=== PATIENT | male | born 1940 | race Caucasian/White ===

== ENCOUNTER → 2020-08-20 15:47 | Outpatient (BNVA) | payer MEDICARE, OTHER, SELFPAY | PROVIDERS: Family Provider Family Medicine; PCP Family Medicine; Visit Provider Internal Medicine | DX: R53.83 Other fatigue (principal); E53.8 Deficiency of other specified B group vitamins; E78.5 Hyperlipidemia, unspecified; Z86.711 Personal history of pulmonary embolism; J44.9 Chronic obstructive pulmonary disease, unspecified | CPT/HCPCS: 80053; 80061; 82550; 82607; 82746; 83036; 83550; 84443; 85025; 85049; 85384; 85610; 85651; 85730; 86140 ==

== ENCOUNTER → 2022-08-02 17:19 | Outpatient (BNVA) | payer MEDICARE, OTHER, SELFPAY | PROVIDERS: Family Provider Family Medicine; PCP Family Medicine; Visit Provider Nurse Practitioner | DX: M35.3 Polymyalgia rheumatica (principal); R53.83 Other fatigue; Z86.711 Personal history of pulmonary embolism | CPT/HCPCS: 80053; 85025; 85651; 86140 ==

== ENCOUNTER → 2022-08-05 10:33 | Outpatient (BNVA) | payer MEDICARE, OTHER, SELFPAY | PROVIDERS: Family Provider Family Medicine; PCP Family Medicine; Visit Provider Nurse Practitioner | DX: Z86.711 Personal history of pulmonary embolism (principal); M35.3 Polymyalgia rheumatica; R53.83 Other fatigue; R73.9 Hyperglycemia, unspecified; I10 Essential (primary) hypertension | CPT/HCPCS: 83036 ==

== ENCOUNTER 2022-10-19 12:39 | Emergency (ER) | payer MEDICARE, OTHER, SELFPAY ==
[2022-10-19] VITALS (63 sets, daily range): BP systolic 102–146; BP diastolic 74–89; PULSE 78–93; RESP 12–29; TEMP 36.4; O2SAT 91–98; BMI 28.2
--- NOTE | 2022-10-19 12:42 | XR_ITS ---
WS: [id number] Exam: XR chest 1V portable [id number] Date/Time of Exam: 10/19/2022 12:53 PM Reason For Exam: dyspnea/cough Comparison 03/12/2013. There are mild groundglass infiltrates in both upper lobes. Mild cardiac enlargement. The lungs are f ully inflated. No obvious pleural effusion. The mediastinum is unremarkable in appearance. Regional b mesfin elements are intact. XR/XR chest 1V portable [id number] IMPRESSION: 1. Mild groundglass infiltrates in both upper lobes. These changes might be chr onic however interstitial pneumonia is not excluded. Covid pneumonia might have this appearance. 2. Probable mild cardiac enlargement.
--- NOTE | 2022-10-19 12:54 | ECG_ITS ---
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 Measurements Intervals [place] Rate: 80 P: 48 OK: 180 QRS: 33 QRSD: 101 T: 30 QT: 373 QTc: 432 Interpretive Statements SINUS RHYTHM No previous ECG available for comparison Electronically Signed On 10-19-2022 20:40:53 CDT by Aramis Rose M.D. [id number]
--- NOTE | 2022-10-19 13:50 | W.ED.SOB ---
Documented by User: Lazaro Haskins DO 10/20/22 07:31 HPI - SOB/Dyspnea General: Chief Complaint: Shortness of Breath/Dyspnea Stated Complaint: SOB Time Seen by Provider: 10/19/22 12:41 Source: patient Mode of arrival: EMS History of Present Illness: HPI Narrative: 81-year-old male presents emergency room complaining of shortness of breath. Patient was seated the all the clinic to be evaluated and was found to be at 84% on 3 L bumped him up to 94% back to him back down to 3 L when he arrived here because his sats were approaching 100% maintaining mid to low 90s on 3 L he is chronically on oxygen due to COPD.. He also has a history of congestive heart failure has noticeable increased swelling in his legs recently. He denies any productive cough fever sweats or chills no chest pain. MD elicited complaint: shortness of breath and cough Pertinent past history: COPD Exacerbating factors: nothing Relieving factors: nothing Known history of: COPD Associated symptoms: Deny abdominal pain, chest congestion, chest pain, cough, diaphoresis, dizziness, extremity pain, fever(s), hemoptysis, lightheadedness, myalgias, nausea, orthopnea, palpitations, paresthesias, polydipsia, polyuria, rash, sense of impending doom, syncope or vomiting Treatment prior to arrival: oxygen Review of Systems Const: Denies: fever(s) or diaphoresis Card: Denies: chest pain, palpitations, lightheadedness, syncope or orthopnea Resp: Denies: hemoptysis or chest congestion GI: Denies: abdominal pain, nausea or vomiting Musc: Denies: extremity pain Neuro: Denies: dizziness Endo: Denies: polyuria or polydipsia ON LICENSE OF [facility] ED PFSH: Medical History Anxiety with depression COPD (chronic obstructive pulmonary disease) DVT (deep venous thrombosis) Essential (primary) hypertension History of migraine History of pulmonary embolism 1999 [facility] Surgical History History of nasal surgery Family History Father Cancer Mother Cancer Social History (Reviewed 10/20/22 @ 07:30 by SHO Ryder Smoking and tobacco status: former smoker Second hand smoke exposure: No Smoking risk assessment/counseling performed?: No Alcohol intake: former Desire information about alcohol rehabilitation?: No Counseling given: No Substance/Drug Use: unknown Desire information about substance/drug rehabilitation?: No Counseling given: No Adopted: No Caregiver/support person: No Lives independently: Yes Household members: spouse Housing: House Marital status: Number of children: 2 service: Yes Current occupational status: retired Current occupational exposures/hazards: No Do you think of yourself as: Straight/Heterosexual Current gender identity: Male Physical Exam Const: COMMON NORMALS: no acute distress GENERAL APPEARANCE: cooperative and comfortable ORIENTATION/CONSCIOUSNESS: Yes awake, Yes oriented to person, Yes oriented to place and Yes oriented to time HENMT: COMMON NORMALS: normocephalic, atraumatic and hearing grossly normal bilaterally HEAD & SCALP: normocephalic and atraumatic Resp: COMMON NORMALS: normal respiratory effort, No retractions and No use of accessory muscles AUSCULTATION: crackles Cardio: COMMON NORMALS: regular rate, regular rhythm and No murmurs present (Cardio) RATE: regular rate RHYTHM: regular rhythm GI: COMMON NORMALS: Soft to palpation and No hepatosplenomegaly present AUSCULTATION: Yes normoactive bowel sounds PALPATION: Yes Soft to palpation, No Tenderness to palpation present (GI), No Guarding due to palpation present (GI) and Yes No hepatosplenomegaly present Extremity: COMMON NORMALS: normal to inspection, capillary refill normal, no clubbing, cyanosis or edema, no calf tenderness and no pedal edema Neuro: SENSORIUM/ORIENTATION: Yes oriented to person, Yes oriented to place and Yes oriented to time Skin: COMMON NORMALS: no rashes or lesions noted GENERAL SKIN EXAM: no rashes or lesions noted Course Vital Signs: Vital signs: Vital Signs Temperature 97.6 F 10/19/22 12:41 Pulse Rate 81 10/19/22 17:45 Respiratory Rate 21 H 10/19/22 17:45 Blood Pressure 136/89 10/19/22 18:00 Pulse Oximetry 94 10/19/22 17:45 Oxygen Delivery Me thod Nasal Cannula 10/19/22 15:25 Oxygen Flow Rate 3 10/19/22 15:25 MDM - SOB/Dyspnea Medical Decision Making Troponins negative CTA pending. Care signed out to Dr. Moon at change of shift. See final notes for diagnosis and disposition. Patient presents here with dyspnea patient CT scan and blood work are all normal troponins are negative CT showed no signs of pneumonia he has had a slight cough could be due to allergies we will give him a shot of Decadron he is to follow-up PCP and return if worsening he understands agrees to plan. Lab Data 10/19/22 13:46 10/19/22 13:46 Labs/Radiology: Radiology Impressions Chest X-Ray 10/19/22 12:42 IMPRESSION: 1. Mild groundglass infiltrates in both upper lobes. These changes might be chronic however interstitial pneumonia is not excluded. Covid pneumonia might have this appearance. 2. Probable mild cardiac enlargement. Chest CTA 10/19/22 14:46 IMPRESSION: Scarring and interlobular septal thickening in bilateral lungs. No pulmonary embolism. Laboratory Results WBC 9.4 10^3/uL (4.0-10.0) 10/19/22 13:46 RBC 3.72 10^6/uL (4.1-5.3) L 10/19/22 13:46 Hgb 12.4 g/dL (11.7-16.6) 10/19/22 13:46 Hct 37.8 % (42.0-52.0) L 10/19/22 13:46 MCV 101.6 fl (80-94) H 10/19/22 13:46 MCH 33.3 pg (28.0-34.0) 10/19/22 13:46 MCHC 32.8 g/dL (30.0-36.0) 10/19/22 13:46 RDW 12.8 % (12.1-15.1) 10/19/22 13:46 Plt Count 174 10^3/cmm (130-400) 10/19/22 13:46 MPV 9.5 fL (7.4-10.4) 10/19/22 13:46 Neut % (Auto) 88.0 % 10/19/22 13:46 Lymph % (Auto) 7.0 % 10/19/22 13:46 Bradford % (Auto) 4.2 % 10/19/22 13:46 Eos % (Auto) 0.3 % 10/19/22 13:46 Baso % (Auto) 0.2 % 10/19/22 13:46 Neut # (Auto) 8.26 10^3/uL (1.8-7.7) H 10/19/22 13:46 Lymph # (Auto) 0.7 10^3/uL (0.8-4.8) L 10/19/22 13:46 Bradford # (Auto) 0.4 10^3/uL (0.2-0.9) 10/19/22 13:46 Eos # (Auto) 0.0 10^3/uL (0.0-0.8) 10/19/22 13:46 Baso # (Auto) 0.0 10^3/uL (0.0-0.1) 10/19/22 13:46 Nucleated RBC % (auto) 0 % 10/19/22 13:46 Nucleated RBCs # 0.0 /100WBC 10/19/22 13:46 Specimen Type Arterial 10/19/22 13:54 Sample Site Radial, left 10/19/22 13:54 ABG pH 7.40 (7.35-7.45) 10/19/22 13:54 ABG pCO2 41.0 mmHg (35-45) 10/19/22 13:54 ABG pO2 80.0 mmHg (80.0-100.0) 10/19/22 13:54 ABG HCO3 25.3 mmol/L (22-26) 10/19/22 13:54 ABG O2 Saturation 96.5 10/19/22 13:54 ABG Base Excess 0.4 mmol/L (-2.0-2.0) 10/19/22 13:54 Kalin Test Pos 10/19/22 13:54 A-a O2 Gradient 2.5 mmHg (5-10) L 10/19/22 13:54 Hematocrit 40.3 % (42-52) L 10/19/22 13:54 Hgb O2 Saturation 94.4 % (95-100) L 10/19/22 13:54 Carboxyhemoglobin 1.2 %THgb (0.4-20.1) 10/19/22 13:54 Methemoglobin 1.0 % (0.4-1.5) 10/19/22 13:54 Total Hemoglobin 13.1 g/dL (14-18) L 10/19/22 13:54 Sodium 139.0 mmol/L (131-143) 10/19/22 13:54 Potassium 4.3 mmol/L (3.5-5.0) 10/19/22 13:54 Glucose 123.0 mg/dL (70-115) H 10/19/22 13:54 Ionized Calcium 1.3 mmol/L (1.1-1.4) 10/19/22 13:54 O2 Delivery Device Nc 10/19/22 13:54 O2 Liters/Min 3.0 % 10/19/22 13:54 Vending Technician ID Walci 10/19/22 13:54 Sodium 138 mmol/L (136-145) 10/19/22 13:46 Potassium 4.3 mmol/L (3.5-5.1) 10/19/22 13:46 Chloride 104 mmol/L (98-107) 10/19/22 13:46 Carbon Dioxide 23 mmol/L (22-29) 10/19/22 13:46 Anion Gap 15.3 (5-19) 10/19/22 13:46 BUN 20 mg/dL (8-23) 10/19/22 13:46 Creatinine 1.0 mg/dL (0.7-1.2) 10/19/22 13:46 GFR Calculation Not Reportable 10/19/22 13:46 Glucose 115 mg/dL (65-115) 10/19/22 13:46 Calculated Osmolality 290 mOsm/kg (285-295) 10/19/22 13:46 Calcium 8.9 mg/dL (8.5-10.5) 10/19/22 13:46 Total Bilirubin 0.2 mg/dL (0.15-1.2) 10/19/22 13:46 AST 23 U/L (0-40) 10/19/22 13:46 ALT 17 U/L (0-41) 10/19/22 13:46 Alkaline Phosphatase 46 U/L (40-130) 10/19/22 13:46 Troponin T Baseline 27 ng/L (0-15) H 10/19/22 13:46 Troponin T 120 Minute 25.75 ng/L (0-15) H 10/19/22 15:18 Delta Troponin T -1.25 ABS# (0-10) L 10/19/22 15:18 NT-Pro-B Natriuret Pep 95 pg/mL (0-450) 10/19/22 13:46 Total Protein 6.7 g/dL (6.6-8.7) 10/19/22 13:46 Albumin 3.7 g/dL (3.5-5.2) 10/19/22 13:46 Globulin 3.0 g/dL (1.3-4.6) 10/19/22 13:46 Discharge Plan Discharge Patient Disposition: Home Clinical Impression: Shortness of breath Condition: Stable Prescriptions: No Action trazodone 150 mg tablet 150 mg PO .at bedtime Qty: 90 3RF albuterol sulfate 2.5 mg /3 mL (0.083 %) solution for nebulization 2.5 mg inhalation Q6H Qty: 15 6RF citalopram 10 mg tablet 10 mg PO DAILY Qty: 90 3RF fluticasone propionate 50 mcg/actuation spray,suspension 1 spray intranasal DAILY Qty: 16 3RF Rx Instructions: administer into each nostril cyanocobalamin (vitamin B-12) 1,000 mcg/mL solution 1,000 mcg SUBCUT .Weekly Qty: 10 8RF formoterol fumarate [Perforomist] 20 mcg/2 mL solution for nebulization 2 ml inhalation Q12H budesonide [Pulmicort] 0.5 mg/2 mL suspension for nebulization 0.5 mg inhalation Q12H Xarelto 10 mg tablet 10 mg PO DAILY Qty: 90 1RF spironolactone 25 mg tablet See Rx Instructions PO DAILY Rx Instructions: 25mg-50mg orally daily; prednisone 20 mg tablet 10 mg PO DAILY tamsulosin 0.4 mg capsule 0.4 mg PO DAILY Qty: 90 3RF sumatriptan succinate 50 mg tablet 50 mg PO Q2H PRN (Reason: migraine headache) Qty: 60 3RF Rx Instructions: do not exceed 4 doses per 24 hrs lisinopril 5 mg tablet 5 mg PO DAILY Qty: 90 3RF Discharge Orders: Discharge ED (Routine); Ordered 10/19/22 Ordered By: Kimberly Moon Referrals: Mikel Izquierdo MD [Primary Care Provider] - 1-3 days Discharge Diet: Advance as tolerated Discharge Activity: Resume usual activity Patient Instructions: Shortness of Breath (ED) Coding Level of Care Code ED Ground Crew Supervisor for Chg Fwd Documented by User: Kimberly Moon MD 10/19/22 17:25 HPI - SOB/Dyspnea General: Chief Complaint: Shortness of Breath/Dyspnea Stated Complaint: SOB Time Seen by Provider: 10/19/22 12:41 PFSH ED PFSH: Medical History Anxiety with depression COPD (chronic obstructive pulmonary disease) DVT (deep venous thrombosis) Essential (primary) hypertension History of migraine History of pulmonary embolism 1999 [facility] Surgical History History of nasal surgery Family History Father Cancer Mother Cancer Social History Smoking and tobacco status: former smoker Second hand smoke exposure: No Smoking risk assessment/counseling performed?: No Alcohol intake: former Desire information about alcohol rehabilitation?: No Counseling given: No Substance/Drug Use: unknown Desire information about substance/drug rehabilitation?: No Counseling given: No Adopted: No Caregiver/support person: No Lives independently: Yes Household members: spouse Housing: House Marital status: Number of children: 2 service: Yes Current occupational status: retired Current occupational exposures/hazards: No Do you think of yourself as: Straight/Heterosexual Current gender identity: Male Course Vital Signs: Vital signs: Vital Signs Temperature 97.6 F 10/19/22 12:41 Pulse Rate 81 10/19/22 17:45 Respiratory Rate 21 H 10/19/22 17:45 Blood Pressure 136/89 10/19/22 18:00 Pulse Oximetry 94 10/19/22 17:45 Oxygen Delivery Me thod Nasal Cannula 10/19/22 15:25 Oxygen Flow Rate 3 10/19/22 15:25 MDM - SOB/Dyspnea Medical Decision Making Patient presents here with dyspnea patient CT scan and blood work are all normal troponins are negative CT showed no signs of pneumonia he has had a slight cough could be due to allergies we will give him a shot of Decadron he is to follow-up PCP and return if worsening he understands agrees to plan. Lab Data 10/19/22 13:46 10/19/22 13:46 Labs/Radiology: Radiology Impressions Chest X-Ray 10/19/22 12:42 IMPRESSION: 1. Mild groundglass infiltrates in both upper lobes. These changes might be chronic however interstitial pneumonia is not excluded. Covid pneumonia might have this appearance. 2. Probable mild cardiac enlargement. Chest CTA 10/19/22 14:46 IMPRESSION: Scarring and interlobular septal thickening in bilateral lungs. No pulmonary embolism. Laboratory Results WBC 9.4 10^3/uL (4.0-10.0) 10/19/22 13:46 RBC 3.72 10^6/uL (4.1-5.3) L 10/19/22 13:46 Hgb 12.4 g/dL (11.7-16.6) 10/19/22 13:46 Hct 37.8 % (42.0-52.0) L 10/19/22 13:46 MCV 101.6 fl (80-94) H 10/19/22 13:46 MCH 33.3 pg (28.0-34.0) 10/19/22 13:46 MCHC 32.8 g/dL (30.0-36.0) 10/19/22 13:46 RDW 12.8 % (12.1-15.1) 10/19/22 13:46 Plt Count 174 10^3/cmm (130-400) 10/19/22 13:46 MPV 9.5 fL (7.4-10.4) 10/19/22 13:46 Neut % (Auto) 88.0 % 10/19/22 13:46 Lymph % (Auto) 7.0 % 10/19/22 13:46 Bradford % (Auto) 4.2 % 10/19/22 13:46 Eos % (Auto) 0.3 % 10/19/22 13:46 Baso % (Auto) 0.2 % 10/19/22 13:46 Neut # (Auto) 8.26 10^3/uL (1.8-7.7) H 10/19/22 13:46 Lymph # (Auto) 0.7 10^3/uL (0.8-4.8) L 10/19/22 13:46 Bradford # (Auto) 0.4 10^3/uL (0.2-0.9) 10/19/22 13:46 Eos # (Auto) 0.0 10^3/uL (0.0-0.8) 10/19/22 13:46 Baso # (Auto) 0.0 10^3/uL (0.0-0.1) 10/19/22 13:46 Nucleated RBC % (auto) 0 % 10/19/22 13:46 Nucleated RBCs # 0.0 /100WBC 10/19/22 13:46 Specimen Type Arterial 10/19/22 13:54 Sample Site Radial, left 10/19/22 13:54 ABG pH 7.40 (7.35-7.45) 10/19/22 13:54 ABG pCO2 41.0 mmHg (35-45) 10/19/22 13:54 ABG pO2 80.0 mmHg (80.0-100.0) 10/19/22 13:54 ABG HCO3 25.3 mmol/L (22-26) 10/19/22 13:54 ABG O2 Saturation 96.5 10/19/22 13:54 ABG Base Excess 0.4 mmol/L (-2.0-2.0) 10/19/22 13:54 Kalin Test Pos 10/19/22 13:54 A-a O2 Gradient 2.5 mmHg (5-10) L 10/19/22 13:54 Hematocrit 40.3 % (42-52) L 10/19/22 13:54 Hgb O2 Saturation 94.4 % (95-100) L 10/19/22 13:54 Carboxyhemoglobin 1.2 %THgb (0.4-20.1) 10/19/22 13:54 Methemoglobin 1.0 % (0.4-1.5) 10/19/22 13:54 Total Hemoglobin 13.1 g/dL (14-18) L 10/19/22 13:54 Sodium 139.0 mmol/L (131-143) 10/19/22 13:54 Potassium 4.3 mmol/L (3.5-5.0) 10/19/22 13:54 Glucose 123.0 mg/dL (70-115) H 10/19/22 13:54 Ionized Calcium 1.3 mmol/L (1.1-1.4) 10/19/22 13:54 O2 Delivery Device Nc 10/19/22 13:54 O2 Liters/Min 3.0 % 10/19/22 13:54 Vending Technician ID Walci 10/19/22 13:54 Sodium 138 mmol/L (136-145) 10/19/22 13:46 Potassium 4.3 mmol/L (3.5-5.1) 10/19/22 13:46 Chloride 104 mmol/L (98-107) 10/19/22 13:46 Carbon Dioxide 23 mmol/L (22-29) 10/19/22 13:46 Anion Gap 15.3 (5-19) 10/19/22 13:46 BUN 20 mg/dL (8-23) 10/19/22 13:46 Creatinine 1.0 mg/dL (0.7-1.2) 10/19/22 13:46 GFR Calculation Not Reportable 10/19/22 13:46 Glucose 115 mg/dL (65-115) 10/19/22 13:46 Calculated Osmolality 290 mOsm/kg (285-295) 10/19/22 13:46 Calcium 8.9 mg/dL (8.5-10.5) 10/19/22 13:46 Total Bilirubin 0.2 mg/dL (0.15-1.2) 10/19/22 13:46 AST 23 U/L (0-40) 10/19/22 13:46 ALT 17 U/L (0-41) 10/19/22 13:46 Alkaline Phosphatase 46 U/L (40-130) 10/19/22 13:46 Troponin T Baseline 27 ng/L (0-15) H 10/19/22 13:46 Troponin T 120 Minute 25.75 ng/L (0-15) H 10/19/22 15:18 Delta Troponin T -1.25 ABS# (0-10) L 10/19/22 15:18 NT-Pro-B Natriuret Pep 95 pg/mL (0-450) 10/19/22 13:46 Total Protein 6.7 g/dL (6.6-8.7) 10/19/22 13:46 Albumin 3.7 g/dL (3.5-5.2) 10/19/22 13:46 Globulin 3.0 g/dL (1.3-4.6) 10/19/22 13:46 Discharge Plan Discharge Patient Disposition: Home Clinical Impression: Shortness of breath Condition: Stable Prescriptions: No Action trazodone 150 mg tablet 150 mg PO .at bedtime Qty: 90 3RF albuterol sulfate 2.5 mg /3 mL (0.083 %) solution for nebulization 2.5 mg inhalation Q6H Qty: 15 6RF citalopram 10 mg tablet 10 mg PO DAILY Qty: 90 3RF fluticasone propionate 50 mcg/actuation spray,suspension 1 spray intranasal DAILY Qty: 16 3RF Rx Instructions: administer into each nostril cyanocobalamin (vitamin B-12) 1,000 mcg/mL solution 1,000 mcg SUBCUT .Weekly Qty: 10 8RF formoterol fumarate [Perforomist] 20 mcg/2 mL solution for nebulization 2 ml inhalation Q12H budesonide [Pulmicort] 0.5 mg/2 mL suspension for nebulization 0.5 mg inhalation Q12H Xarelto 10 mg tablet 10 mg PO DAILY Qty: 90 1RF spironolactone 25 mg tablet See Rx Instructions PO DAILY Rx Instructions: 25mg-50mg orally daily; prednisone 20 mg tablet 10 mg PO DAILY tamsulosin 0.4 mg capsule 0.4 mg PO DAILY Qty: 90 3RF sumatriptan succinate 50 mg tablet 50 mg PO Q2H PRN (Reason: migraine headache) Qty: 60 3RF Rx Instructions: do not exceed 4 doses per 24 hrs lisinopril 5 mg tablet 5 mg PO DAILY Qty: 90 3RF Discharge Orders: Discharge ED (Routine); Ordered 10/19/22 Ordered By: Kimberly Moon Referrals: Mikel Izquierdo MD [Primary Care Provider] - 1-3 days Discharge Diet: Advance as tolerated Discharge Activity: Resume usual activity Patient Instructions: Shortness of Breath (ED) Coding Level of Care Code ED Ground Crew Supervisor for Celina Combs
[2022-10-19 13:59] LABS: Basophils % 0.2 %; Eosinophils % 0.3 %; Hematocrit 37.8 % (42.0-52.0); Hemoglobin 12.4 g/dL (11.7-16.6); Lymphocytes # 0.7 10^3/uL (0.8-4.8); Mean Corpuscular HGB Conc 32.8 g/dL (30.0-36.0); Mean Corpuscular Hemoglobin 33.3 pg (28.0-34.0); Mean Corpuscular Volume 101.6 fl (80-94); Mean Platelet Volume 9.5 fL (7.4-10.4); Monocytes # 0.4 10^3/uL (0.2-0.9); Monocytes % 4.2 %; Neutrophils # 8.26 10^3/uL (1.8-7.7); Nucleated Red Blood Cells % 0 %; Platelet Count 174 10^3/cmm (130-400); Red Blood Count 3.72 10^6/uL (4.1-5.3); Red Cell Distribution Width 12.8 % (12.1-15.1); White Blood Count 9.4 10^3/uL (4.0-10.0)
[2022-10-19 14:05] LABS: Alveolar-Arterial Oxygen Gradi 2.5 mmHg (5-10); Arterial Blood Gas Hematocrit 40.3 % (42-52); Base Excess ABG 0.4 mmol/L (-2.0-2.0); Blood Gas Allen Test Pos; Blood Gas Operator Identificat WALCI; Blood Gas Sample Site Radial, left; Blood Gas Sample Type Arterial; Carboxyhemoglobin 1.2 %THgb (0.4-20.1); HCO3 ABG 25.3 mmol/L (22-26); HGB O2 Sat 94.4 % (95-100); Ionized Calcium Level - ABG 1.3 mmol/L (1.1-1.4); Oxygen Device NC; Oxygen Saturation ABG 96.5; Potassium Level - ABG 4.3 mmol/L (3.5-5.0); Total Hemoglobin 13.1 g/dL (14-18)
[2022-10-19 14:24] LABS: Troponin(5th) Baseline 27 ng/L (0-15)
[2022-10-19 14:32] LABS: Alanine Aminotransferase 17 U/L (0-41); Albumin Level 3.7 g/dL (3.5-5.2); Alkaline Phosphatase 46 U/L (40-130); Anion Gap 15.3 (5-19); Aspartate Amino Transferase 23 U/L (0-40); Blood Urea Nitrogen 20 mg/dL (8-23); Calcium 8.9 mg/dL (8.5-10.5); Carbon Dioxide 23 mmol/L (22-29); Chloride 104 mmol/L (98-107); Glucose 115 mg/dL (65-115); NT Pro B Type Natriuretic Pept 95 pg/mL (0-450); Osmolality Calculated 290 mOsm/kg (285-295); Potassium 4.3 mmol/L (3.5-5.1); Sodium 138 mmol/L (136-145); Total Bilirubin 0.2 mg/dL (0.15-1.2); Total Protein 6.7 g/dL (6.6-8.7)
--- NOTE | 2022-10-19 14:46 | CTR_ITS ---
PROCEDURE INFORMATION: Exam: CTA Chest With Contrast Exam date and time: 10/19/2022 3:57 PM Age: 81 years old Clinical indication: Shortness of breath and other: Tachycardia; Additional info: Dyspnea/tachycardia TECHNIQUE: Imaging protocol: Computed tomographic angiography of the chest with contrast. 3D rendering (Not supervised by radiologist): MIP and/or 3D reconstructed images were created by the technologist. Radiation optimization: All CT scans at this facility use at least one of these dose optimization techniques: automated exposure control; mA and/or kV adjustment per patient size (includes targeted exams where dose is matched to clinical indication); or iterative reconstruction. Contrast material: OMNI 350; Contrast volume: 100 ml; Contrast route: INTRAVENOUS (IV); REPORTING DATA: Count of CT and Cardiac NM exams in prior 12 months: This patient has received 0 known CTs and 0 known cardiac nuclear medicine studies in the 12 months prior to the current study. COMPARISON: CR XR chest 1V portable [id number] 10/19/2022 12:55 PM RADIATION DOSE METRICS: Total DLP (mGy-cm): 913 FINDINGS: Pulmonary arteries: Normal. No pulmonary emboli. Aorta: Unremarkable. No aortic aneurysm. No aortic dissection. Lungs: Scarring and interlobular septal thickening in bilateral lungs. Pleural spaces: Unremarkable. No pneumothorax. No pleural effusion. Heart: Unremarkable. No cardiomegaly. No pericardial effusion. Lymph nodes: Unremarkable. No enlarged lymph nodes. Diaphragm: Small hiatal hernia. Liver: Calcified granulomata of the liver and spleen. Bones/joints: Degenerative changes of the spine. Soft tissues: Unremarkable. CT/CT angio chest PE protcl [id number] IMPRESSION: Scarring and interlobular septal thickening in bilateral lungs. No pulmonary embolism.
--- NOTE | 2022-10-19 15:23 | ECG_ITS ---
[facility] Test Date: 2022-10-19 Pat Name: Tay Wood Department: Room: Gender: Male Ingot Caster: : 1940 Requested By: Lazaro Hernandez Order Number: [id number] Steven MD: Aramis Rose M.D. Measurements Intervals [place] Rate: 85 P: 25 MS: 166 QRS: 22 QRSD: 98 T: 21 QT: 356 QTc: 425 Interpretive Statements SINUS RHYTHM Compared to ECG 10/19/2022 12:54:23 No significant changes Electronically Signed On 10-19-2022 20:43:23 CDT by Aramis Rose M.D. [id number]
[2022-10-19] MEDS: iohexol 350 mg/mL 500 mL Btl (per mL) IV (15:59)
[2022-10-19 16:16] LABS: Troponin 5 2HR 25.75 ng/L (0-15)
[2022-10-19 16:20] LABS: Troponin 5 2HR Delta -1.25 ABS# (0-10)
[2022-10-19] MEDS: FUROsemide 10 mg/mL SDV 4mL 40 MG IVP (17:12)
[2022-10-19] MEDS: dexamethasone 10 mg/mL INJ IVP (17:33)
== END 2022-10-19 17:50 | disposition home or self-care (01) ==
PROVIDERS: Family Medicine; Emergency Provider Emergency Medicine; PCP Family Medicine
DX: R06.02 Shortness of breath (principal); J44.9 Chronic obstructive pulmonary disease, unspecified; I10 Essential (primary) hypertension; Z87.891 Personal history of nicotine dependence
CPT/HCPCS: 36415; 36600; 71045; 71275; 80051; 80053; 82330; 82805; 83880; 84484; 85025; 93005; 96374; 96375; 99285; J1100; J1940; Q9967

== ENCOUNTER → 2022-10-28 10:14 | Outpatient (BNVA) | payer MEDICARE, OTHER, SELFPAY | PROVIDERS: PCP Family Medicine; Visit Provider Family Medicine | DX: I10 Essential (primary) hypertension (principal); J44.9 Chronic obstructive pulmonary disease, unspecified | CPT/HCPCS: 80048; 82533 ==

== ENCOUNTER → 2022-11-11 14:33 | Outpatient (BNVA) | payer MEDICARE, OTHER, SELFPAY | PROVIDERS: PCP Family Medicine; Visit Provider Nurse Practitioner | DX: I10 Essential (primary) hypertension (principal); Z00.00 Encounter for general adult medical examination without abnormal findings | CPT/HCPCS: 80048 ==

== ENCOUNTER → 2024-09-06 10:09 | Outpatient (BNVA) | payer MEDICARE, OTHER, SELFPAY | PROVIDERS: PCP Family Medicine; Visit Provider Family Medicine | DX: E78.5 Hyperlipidemia, unspecified (principal) | CPT/HCPCS: 80053; 80061; 85025 ==

== ENCOUNTER → 2024-11-28 11:11 | Outpatient (BNVA) | payer MEDICARE, OTHER, SELFPAY | PROVIDERS: PCP Family Medicine; Visit Provider Family Medicine | DX: Z86.711 Personal history of pulmonary embolism (principal) | CPT/HCPCS: 85610 ==

== ENCOUNTER → 2024-12-20 11:12 | Outpatient (BNVA) | payer MEDICARE, OTHER, SELFPAY | PROVIDERS: PCP Family Medicine; Visit Provider Nurse Practitioner | DX: Z86.711 Personal history of pulmonary embolism (principal) | CPT/HCPCS: 85610 ==

== ENCOUNTER → 2025-01-09 13:05 | Outpatient (BNVA) | payer MEDICARE, OTHER, SELFPAY | PROVIDERS: PCP Family Medicine; Visit Provider Family Medicine | DX: Z86.711 Personal history of pulmonary embolism (principal) | CPT/HCPCS: 85610 ==

== ENCOUNTER → 2025-01-23 11:00 | Outpatient (BNVA) | payer MEDICARE, OTHER, SELFPAY | PROVIDERS: PCP Family Medicine; Visit Provider Nurse Practitioner | DX: Z86.711 Personal history of pulmonary embolism (principal) | CPT/HCPCS: 85610 ==

== ENCOUNTER → 2025-02-13 13:04 | Outpatient (BNVA) | payer MEDICARE, OTHER, SELFPAY | PROVIDERS: PCP Family Medicine; Visit Provider Nurse Practitioner | DX: Z86.711 Personal history of pulmonary embolism (principal) | CPT/HCPCS: 85610 ==

== ENCOUNTER → 2025-04-25 09:51 | Outpatient (BNVA) | payer MEDICARE, OTHER, SELFPAY | PROVIDERS: PCP Family Medicine; Visit Provider Family Medicine | DX: J44.9 Chronic obstructive pulmonary disease, unspecified (principal); I51.7 Cardiomegaly; J84.10 Pulmonary fibrosis, unspecified | CPT/HCPCS: 71046 ==

== ENCOUNTER 2025-05-10 14:08 | Outpatient (CLI) | payer MEDICARE, OTHER, SELFPAY ==
[2025-05-10 14:45] LABS: Anion Gap 16.3 (5-19); Blood Urea Nitrogen 13 mg/dL (8-23); Calcium 8.2 mg/dL (8.5-10.5); Carbon Dioxide 21 mmol/L (22-29); Chloride 102 mmol/L (98-107); Glucose 117 mg/dL (65-115); Osmolality Calculated 281 mOsm/kg (285-295); Potassium 4.3 mmol/L (3.5-5.1); Sodium 135 mmol/L (136-145)
== END 2025-05-10 14:09 | disposition home or self-care (01) ==
LOC: LAB 14:09
PROVIDERS: PCP Family Medicine; Visit Provider Family Medicine
DX: J44.9 Chronic obstructive pulmonary disease, unspecified (principal)
CPT/HCPCS: 80048